=== PATIENT | female | born 1995 | race Two or more races ===

== ENCOUNTER 2016-07-14 12:59 | Emergency (ER) | payer OTHER ==
[2016-07-14 13:03] VITALS: BP 102/49; PULSE 100; TEMP 98.1; BMI 19.9
--- NOTE | 2016-07-14 14:10 | PDOC ---
History of Present Illness - General History Source: Patient Exam Limitations: No Limitations - History of Present Illness Initial Comments: 07/14/16 14:13 The patient is a 21-year-old woman , accompanied by mother, currently 6-7 weeks , with a past medical history of seizure disorders who presents to the emergency department via walk-in for further evaluation of vaginal bleeding. Patient reports noting vaginal spotting, approximately 4 days ago, which was bright red in appearance. No clots. Patient reports associated symptoms of abdominal cramping, nausea and vomiting, for which she attributes to her morning sickness. Patient denies any fever, chills, dysuria, hematuria, vaginal discharge. She has an appointment with both her Neurologist and consumer studies professor on Sunday morning. Allergies: None reported. Past Surgical History: None reported. Social History: No tobacco, ETOH and recreational drug use. Primary Care Physician: Dr. Yanique Bush <Shasta Tomas - Last Filed: 07/14/16 16:29> <Shalini Quintero - Last Filed: 07/15/16 10:05> - General Chief Complaint: Vaginal Bleeding Stated Complaint: VAGINAL PAIN, Time Seen by Provider: 07/14/16 14:10 Past History <Shasta Tomas - Last Filed: 07/14/16 16:29> - Past Medical History Other medical history: SEIZURES - Psycho/Social/Smoking Cessation Hx Suicidal Ideation: No Smoking History: Never smoked Information on smoking cessation initiated: No Hx Alcohol Use: No Drug/Substance Use Hx: No Substance Use Type: None <Shalini Quinetro - Last Filed: 07/15/16 10:05> - Past Medical History Allergies/Adverse Reactions: Allergies Allergy/AdvReac Type Severity Reaction Status Date / Time No Known Allergies Allergy Verified 07/14/16 13:03 Home Medications: Ambulatory Orders Cephalexin Monohydrate [Keflex -] 500 mg PO BID #14 capsule 07/14/16 Review of Systems - Review of Systems Able to Perform ROS?: Yes Comments:: 07/14/16 14:16 GENERAL/CONSTITUTIONAL: No fever or chills. No weakness. HEAD, EYES, EARS, NOSE AND THROAT: No change in vision. No ear pain or discharge. No sore throat. CARDIOVASCULAR: No chest pain or shortness of breath. RESPIRATORY: No cough, wheezing, or hemoptysis. GASTROINTESTINAL: +Abdominal cramping. Nausea. Vomiting. No diarrhea or constipation. GENITOURINARY: +vaginal spotting. No dysuria, frequency, or change in urination. MUSCULOSKELETAL: No joint or muscle swelling or pain. No neck or back pain. SKIN: No rash NEUROLOGIC: No headache, vertigo, loss of consciousness, or change in strength/ sensation. ENDOCRINE: No increased thirst. No abnormal weight change. HEMATOLOGIC/LYMPHATIC: No anemia, easy bleeding, or history of blood clots. ALLERGIC/IMMUNOLOGIC: No hives or skin allergy. <GenovevaShasta - Last Filed: 07/14/16 16:29> *Physical Exam - Vital Signs Last Vital Signs Temp Pulse Resp BP Pulse Ox 98.1 F 100 H 18 102/49 100 07/14/16 13:07/14/16 13:07/14/16 13:07/14/16 13:07/14/16 13:01 - Physical Exam Comments: 07/14/16 14:16 GENERAL: Awake, alert, and fully oriented, in no acute distress HEAD: No signs of trauma EYES: PERRLA, EOMI, sclera anicteric, conjunctiva clear ENT: Auricles normal inspection, hearing grossly normal, nares patent, oropharynx clear without exudates. Moist mucosa NECK: Normal ROM, supple, no lymphadenopathy, JVD, or masses LUNGS: Breath sounds equal, clear to auscultation bilaterally. No wheezes, and no crackles HEART: Regular rate and rhythm, normal S1 and S2, no murmurs, rubs or gallops ABDOMEN: Soft, nontender, normoactive bowel sounds. No guarding, no rebound. No masses EXTREMITIES: Normal range of motion, no edema. No clubbing or cyanosis. No cords, erythema, or tenderness NEUROLOGICAL: Cranial nerves II through XII grossly intact. Normal speech, normal gait <Tomas,Shasta - Last Filed: 07/14/16 16:29> - Vital Signs Last Vital Signs Temp Pulse Resp BP Pulse Ox 98.1 F 100 H 18 102/49 100 07/14/16 13:01 07/14/16 13:07/14/16 13:07/14/16 13:07/14/16 13:01 - Physical Exam Comments: : No external lesions. Trace blood in the vault. Os closed. Nontender. <Shalini Quintero - Last Filed: 07/15/16 10:05> ED Treatment Course - LABORATORY CBC & Chemistry Diagram: 07/14/16 14:11 07/14/16 14:11 <Shasta Tomas - Last Filed: 07/14/16 16:29> - LABORATORY CBC & Chemistry Diagram: 07/14/16 14:11 07/14/16 14:11 <Shalini Quintero - Last Filed: 07/15/16 10:05> Medical Decision Making - Medical Decision Making 07/14/16 16:[address] Trammell. F/u keyanna results. If +IUP, DC home with abx for UTI. <Shalini Quintero - Last Filed: 07/15/16 10:05> *DC/Admit/Observation/Transfer - Attestations Scribe Attestion: 07/14/16 14:16 Documentation prepared by Shasta Tomas, acting as bacteriologist medical for Shalini Quintero MD. <Shasta Tomas - Last Filed: 07/14/16 16:29> - Discharge Dispostion Admit: No <Shalini Quintero - Last Filed: 07/15/16 10:05> Diagnosis at time of Disposition: UTI (urinary tract infection) Qualifiers: Urinary tract infection type: acute cystitis Hematuria presence: without hematuria Qualified Code(s): N30.00 - Acute cystitis without hematuria Qualifiers: Weeks of gestation: less than 8 weeks Qualified Code(s): Z3A.01 - Less than 8 weeks gestation of - Discharge Dispostion Disposition: HOME Condition at time of disposition: Stable - Prescriptions Prescriptions: Cephalexin Monohydrate [Keflex -] 500 mg PO BID #14 capsule - Referrals Referrals: Yanique Bush [Primary Care Provider] - - Patient Instructions Printed Discharge Instructions: DI for Urinary Tract Infection (UTI), DI for Vaginal Bleeding During Additional Instructions: Please follow up with your chief wharfinger doctor. If you have worsening bleed, please return to the ER for further evaluation. Call to schedule an appointment. You also have a urinary tract infection. Take the keflex as prescribed.
[2016-07-14 15:09] LABS: BASOPHIL 0.1 % (0-2.0); EOSINOPHIL 0.4 % (0-4.5); MCH 30.6 pg (25.7-33.7); MEAN PLT VOLUME 8.3 fl (7.5-11.1); NEUTROPHILS 66.4 % (42.8-82.8); PLATELET COUNT 151 K/MM3 (134-434); RDW 13.9 % (11.6-15.6); WHITE BLOOD COUNT 6.2 K/mm3 (4.0-10.0)
[2016-07-14 15:15] LABS: URINE APPEARANCE SLCLOUDY; URINE BILIRUBIN NEGATIVE (NEGATIVE); URINE COLOR YELLOW; URINE GLUCOSE (UA) NEGATIVE (NEGATIVE); URINE KETONE NEGATIVE (NEGATIVE); URINE NITRITE NEGATIVE (NEGATIVE); URINE PROTEIN NEGATIVE (NEGATIVE); URINE UROBILINOGEN NEGATIVE E.U./dl (0.2-1.0)
[2016-07-14 15:17] LABS: ALBUMIN 4.1 g/dl (3.4-5.0); ANION GAP 9 (8-16); BILIRUBIN,TOTAL 0.2 mg/dL (0.2-1.0); CALCIUM 8.7 mg/dL (8.5-10.1); CO2 27 mmol/L (21-32); CREATININE 0.4 mg/dL (0.55-1.02); GLUCOSE,RANDOM 85 mg/dL (74-106); SGOT/AST 7 U/L (15-37); SGPT/ALT 18 U/L (12-78); TOT PROT 6.9 g/dl (6.4-8.2)
[2016-07-14 15:22] LABS: URINE BLOOD 3+ (NEGATIVE); URINE LEUK ESTERASE 2+ (NEGATIVE)
[2016-07-14 15:27] LABS: URINE MUCUS RARE; URINE RBC 33 /hpf (0-3); URINE WBC 14 /hpf (3-5)
[2016-07-14 15:32] LABS: ALK PHOS 44 U/L (45-117)
[2016-07-14] MEDS ORDERED: CEPHALEXIN MONOHYDRATE 500 MG CAPSULE (UD) PO ONE (15:48)
[2016-07-14] MEDS ORDERED: CEPHALEXIN MONOHYDRATE 250 MG CAPSULE (FP) ONE (16:20)
--- NOTE | 2016-07-14 18:18 | PDOC ---
*Physical Exam - Vital Signs Last Vital Signs Temp Pulse Resp BP Pulse Ox 98.1 F 100 H 18 102/49 100 07/14/16 13:01 07/14/16 13:01 07/14/16 13:01 07/14/16 13:01 07/14/16 13:01 ED Treatment Course - LABORATORY CBC & Chemistry Diagram: 07/14/16 14:11 07/14/16 14:11 - ADDITIONAL ORDERS Additional order review: Laboratory Results 07/14/16 07/14/16 07/14/16 14:11 14:11 14:11 Sodium 136 Potassium 4.3 Chloride 100 Carbon Dioxide 27 Anion Gap 9 BUN 8 Creatinine 0.4 L Creat Clearance w eGFR > 60 Random Glucose 85 Calcium 8.7 Total Bilirubin 0.2 AST 7 L ALT 18 Alkaline Phosphatase 44 L Total Protein 6.9 Albumin 4.1 Beta HCG, Quant 57203.2 Urine Color Yellow Urine Appearance Slcloudy Urine pH 6.0 Ur Specific Empire 1.028 Urine Protein Negative Urine Glucose (UA) Negative Urine Ketones Negative Urine Blood 3+ H Urine Nitrite Negative Urine Bilirubin Negative Urine Urobilinogen Negative Ur Leukocyte Esterase 2+ H Urine RBC 33 Urine WBC 14 Ur Epithelial Cells Many Urine Mucus Rare Blood Type A POSITIVE Antibody Screen Negative 07/14/16 14:11 RBC 3.52 L MCV 90.0 MCHC 34.0 RDW 13.9 MPV 8.3 Neutrophils % 66.4 Lymphocytes % 26.2 Monocytes % 6.9 Eosinophils % 0.4 Basophils % 0.1 - Medications Given in the ED: ED Medications Discontinued Medications Generic Name Dose Route Start Last Admin Trade Name Freq PRN Reason Stop Dose Admin Cephalexin HCl 500 mg 07/14/16 15:48 07/14/16 16:21 Keflex - PO 07/14/16 15:49 500 mg ONCE ONE Administration Medical Decision Making - Medical Decision Making 07/14/16 18:15 Sign-out received from outgoing Emergency Physician Pt interviewed and examined Ancillary studies reviewed Case discussed in detail with oncoming Emergency Physician including history, physical exam and ancillary studies. Ultrasound reviewed. Gestational age of 6 weeks and 2 days with a heart rate 120 bpm. Small subchorionic bleed. Blood type is A+. Labs reviewed. Urine analysis with the urine tract infection. Given by the prior attending. CBC, BMP 07/14/16 14:11 07/14/16 14:11 CMP Sodium 136 mmol/L (136-145) 07/14/16 14:11 Potassium 4.3 mmol/L (3.5-5.1) 07/14/16 14:11 Chloride 100 mmol/L (98-107) 07/14/16 14:11 Carbon Dioxide 27 mmol/L (21-32) 07/14/16 14:11 Anion Gap 9 (8-16) 07/14/16 14:11 BUN 8 mg/dL (7-18) 07/14/16 14:11 Creatinine 0.4 mg/dL (0.55-1.02) L 07/14/16 14:11 Creat Clearance w eGFR > 60 (>60) 07/14/16 14:11 Random Glucose 85 mg/dL (74-106) 07/14/16 14:11 Calcium 8.7 mg/dL (8.5-10.1) 07/14/16 14:11 Total Bilirubin 0.2 mg/dL (0.2-1.0) 07/14/16 14:11 AST 7 U/L (15-37) L 07/14/16 14:11 ALT 18 U/L (12-78) 07/14/16 14:11 Alkaline Phosphatase 44 U/L (45-117) L 07/14/16 14:11 Total Protein 6.9 g/dl (6.4-8.2) 07/14/16 14:11 Albumin 4.1 g/dl (3.4-5.0) 07/14/16 14:11 Beta HCG, Quant 55693.2 mIU/ml 07/14/16 14:11 Return precautions given including worsening bleed. I discussed the physical exam findings, ancillary test results and final diagnoses with the patient. I answered all of the patient's questions. The patient was satisfied with the care received and felt comfortable with the discharge plan and treatment plan. The patient will call their primary care physician within 24 hours to arrange follow-up and will return to the Emergency Department with any new, persistant or worsening symptoms. *DC/Admit/Observation/Transfer Diagnosis at time of Disposition: UTI (urinary tract infection) Qualifiers: Urinary tract infection type: acute cystitis Hematuria presence: without hematuria Qualified Code(s): N30.00 - Acute cystitis without hematuria Qualifiers: Weeks of gestation: less than 8 weeks Qualified Code(s): Z3A.01 - Less than 8 weeks gestation of - Discharge Dispostion Disposition: HOME Condition at time of disposition: Stable Admit: No - Prescriptions Prescriptions: Cephalexin Monohydrate [Keflex -] 500 mg PO BID #14 capsule - Referrals Referrals: Yanique Bush [Primary Care Provider] - - Patient Instructions Printed Discharge Instructions: DI for Vaginal Bleeding During , DI for Urinary Tract Infection (UTI) Additional Instructions: Please follow up with your botanical technical officer doctor. If you have worsening bleed, please return to the ER for further evaluation. Call to schedule an appointment. You also have a urinary tract infection. Take the keflex as prescribed. - Post Discharge Activity
== END 2016-07-14 18:54 | disposition home or self-care (01) ==
LOC: JER 12:59
DX: O26.891 Other specified pregnancy related conditions, first trimester (principal); N30.00 Acute cystitis without hematuria; Z3A.01 Less than 8 weeks gestation of pregnancy
CPT/HCPCS: 36415; 76801-TC; 80053; 81003; 81015; 84702; 85025; 86850; 86900; 86901; 99283-25

== ENCOUNTER 2019-04-26 16:36 | Emergency (ER) | payer OTHER ==
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
[2019-04-26] MEDS ORDERED: SODIUM CHLORIDE 0.9% 1000 ML INFUS.BAG IV ONE (17:09)
[2019-04-26 17:10] VITALS: BP 101/62; PULSE 90; TEMP 98.6; BMI 22.1
[2019-04-26 17:37] LABS: INR 1.14 (0.82-1.09); PROTHROMBIN TIME (PATIENT) 12.7 SEC (10.2-13.0)
[2019-04-26 17:38] LABS: BASO % 0.3 % (0-2.0); EOS % 0.4 % (0-4.5); HEMOGLOBIN 12.1 GM/dl (10.7-15.3); MCHC 33.6 g/dl (32.0-36.0); MEAN CELL VOLUME 89.1 fl (80-96); MEAN PLT VOLUME 8.5 fl (7.5-11.1); MONO % 3.4 % (3.8-10.2); NEUT % 70.9 % (42.8-82.8); PLATELET COUNT 235 K/MM3 (134-434); RBC 4.04 M/mm3 (3.60-5.2); RDW 12.8 % (11.6-15.6); WHITE BLOOD COUNT 7.8 K/mm3 (4.0-10.8)
[2019-04-26 17:56] LABS: ALBUMIN 4.7 g/dl (3.4-5.0); BILIRUBIN,TOTAL 0.2 mg/dl (0.2-1); CALCIUM 9.1 mg/dl (8.5-10); CREATININE 0.6 mg/dl (0.55-1.3); POTASSIUM 3.7 mmol/L (3.5-5.1); TOT PROT 7.7 g/dl (6.4-8.2)
[2019-04-26 18:43] LABS: EPITHELIAL CELLS MANY /hpf
[2019-04-26] MEDS ORDERED: CEFTRIAXONE 1 GM in DEXTROSE 5%-WATER - 100 ML IVPB ONE (18:50)
[2019-04-26] MEDS ORDERED: cefTRIAXone SODIUM 1 GM VIAL ONE (18:59)
[2019-04-26 19:09] LABS: COCAINE, UR NEGATIVE ng/ml (CUTOFF=300); OPIATES, URI NEGATIVE ng/ml (CUTOFF=300); PHENCYCLIDINE,URINE NEGATIVE ng/ml (CUTOFF=25); URINE AMPHETAMINES NEGATIVE ng/ml (CUTOFF=500); URINE BENZODIAZEPINES NEGATIVE ng/ml (CUTOFF=200)
[2019-04-26 19:10] LABS: METHADONE, UR NEGATIVE ng/ml (CUTOFF=300); URINE BARBITURATES NEGATIVE ng/ml (CUTOFF=200)
--- NOTE | 2019-04-26 19:49 | PDOC ---
*Physical Exam - Vital Signs Last Vital Signs Temp Pulse Resp BP Pulse Ox 98.6 F 90 20 101/62 99 04/26/19 16:37 04/26/19 16:37 04/26/19 16:37 04/26/19 16:37 04/26/19 16:37 ED Treatment Course - LABORATORY CBC & Chemistry Diagram: 04/26/19 17:30 04/26/19 17:30 - ADDITIONAL ORDERS Additional order review: Laboratory Results 04/26/19 04/26/19 04/26/19 18:17 18:17 18:17 PT with INR INR PTT (Actin FS) Sodium Potassium Chloride Carbon Dioxide Anion Gap BUN Creatinine Est GFR (CKD-EPI)AfAm Est GFR (CKD-EPI)NonAf POC Glucometer Random Glucose Lactic Acid Calcium Total Bilirubin AST ALT Alkaline Phosphatase Total Protein Albumin TSH Urine Color Yellow Urine Appearance Clear Urine pH 6.0 Urine Protein Negative Urine Glucose (UA) Negative Urine Ketones Negative Urine Blood 2+ H Urine Nitrite Negative Urine Bilirubin Negative Urine Urobilinogen 0.2 Ur Leukocyte Esterase 2+ Urine RBC 10-20 Urine WBC 10-20 Ur Transition Epith Cell Many Urine Bacteria Few Urine HCG, Qual Negative Opiates Screen Negative Methadone Screen Negative Barbiturate Screen Negative Phencyclidine Screen Negative Ur Amphetamines Screen Negative MDMA (Ecstasy) Screen Negative Benzodiazepines Screen Negative Cocaine Screen Negative U Marijuana (THC) Screen Negative Alcohol, Quantitative 04/26/19 04/26/19 04/26/19 17:50 17:48 17:30 PT with INR INR PTT (Actin FS) Sodium Potassium Chloride Carbon Dioxide Anion Gap BUN Creatinine Est GFR (CKD-EPI)AfAm Est GFR (CKD-EPI)NonAf POC Glucometer 88 Random Glucose Lactic Acid 1.7 Calcium Total Bilirubin AST ALT Alkaline Phosphatase Total Protein Albumin TSH Urine Color Urine Appearance Urine pH Urine Protein Urine Glucose (UA) Urine Ketones Urine Blood Urine Nitrite Urine Bilirubin Urine Urobilinogen Ur Leukocyte Esterase Urine RBC Urine WBC Ur Transition Epith Cell Urine Bacteria Urine HCG, Qual Opiates Screen Methadone Screen Barbiturate Screen Phencyclidine Screen Ur Amphetamines Screen MDMA (Ecstasy) Screen Benzodiazepines Screen Cocaine Screen U Marijuana (THC) Screen Alcohol, Quantitative < 3.0 04/26/19 04/26/19 04/26/19 17:30 17:30 17:30 PT with INR 12.7 INR 1.14 PTT (Actin FS) 27.2 Sodium 137 Potassium 3.7 Chloride 103 Carbon Dioxide 24 Anion Gap 10 BUN 13.0 Creatinine 0.6 Est GFR (CKD-EPI)AfAm 148.90 Est GFR (CKD-EPI)NonAf 128.48 POC Glucometer Random Glucose 91 Lactic Acid Calcium 9.1 Total Bilirubin 0.2 AST 19 ALT 15 Alkaline Phosphatase 43 L Total Protein 7.7 Albumin 4.7 TSH 1.74 Urine Color Urine Appearance Urine pH Urine Protein Urine Glucose (UA) Urine Ketones Urine Blood Urine Nitrite Urine Bilirubin Urine Urobilinogen Ur Leukocyte Esterase Urine RBC Urine WBC Ur Transition Epith Cell Urine Bacteria Urine HCG, Qual Opiates Screen Methadone Screen Barbiturate Screen Phencyclidine Screen Ur Amphetamines Screen MDMA (Ecstasy) Screen Benzodiazepines Screen Cocaine Screen U Marijuana (THC) Screen Alcohol, Quantitative 04/26/19 04/26/19 17:48 17:30 RBC 4.04 MCV 89.1 MCHC 33.6 RDW 12.8 MPV 8.5 Neutrophils % 70.9 Lymphocytes % 25.0 Monocytes % 3.4 L Eosinophils % 0.4 Basophils % 0.3 POC Glucometer 88 - Medications Given in the ED: ED Medications Discontinued Medications Generic Name Dose Route Start Last Admin Trade Name Freq PRN Reason Stop Dose Admin Ceftriaxone Sodium 1 gm/ 100 mls @ 200 mls/hr 04/26/19 18:50 04/26/19 19:04 Dextrose IVPB 04/26/19 19:19 200 mls/hr ONCE ONE Administration Sodium Chloride 1,000 ml 04/26/19 17:09 04/26/19 17:36 Normal Saline - IV 04/26/19 17:10 1,000 ml ONCE ONE Administration ED Progress Note - Progress Note Progress Note: Care of this patient received from Dr. Vasquez. Noncontrast head CT shows no evidence of acute intracranial pathology. Case discussed with Dr. Carmichael on-call for neurology. patient will be restarted on Keppra (500 mg IV loading dose followed by 100 mg orally twice a day). Since the patient is back to baseline neurologically without further seizures or development of new symptoms, Dr. Carmichael feels that the patient can be discharged with follow-up as an outpatient. He can see the patient in 48 hours (Sunday, April 28). Meanwhile, the patient to return to the emergency room if she has any further seizure activity or develops any new symptoms. plan discussed with the patient and her family: They understand and agree to the plan. Discharge - Discharge Information Problems reviewed: Yes Clinical Impression/Diagnosis: Seizure UTI (urinary tract infection) Qualifiers: Urinary tract infection type: acute cystitis Hematuria presence: without hematuria Qualified Code(s): N30.00 - Acute cystitis without hematuria Condition: Stable Disposition: HOME - Additional Discharge Information Prescriptions: Ciprofloxacin [Cipro (Restricted To Id)] 250 mg PO BID #10 tablet levETIRAcetam [Keppra -] 500 mg PO BID #14 tablet - Follow up/Referral Referrals: Chani Carmichael MD [Staff Physician] - - Patient Discharge Instructions Patient Printed Discharge Instructions: DI for Seizure Disorder -- Adult Additional Instructions: Keppra 500 mg twice a day starting tomorrow Cipro 250 mg twice a day for 5 days starting tomorrow You can take ibuprofen or acetaminophen as needed for headache Return to ER if you have any seizure activity or develop severe headache/ vomiting Follow-up with neurologist () on April 28 (1:30 PM) Call neurology office at 9 AM on Sunday to confirm appointment - Post Discharge Activity
[2019-04-26] MEDS ORDERED: levETIRAcetam 500 MG/5 ML INJECTION VIAL IVPB ONE ×2 (19:57→19:59)
--- NOTE | 2019-04-27 10:54 | EKG ---
Test Reason : Blood Pressure : / mmHG Vent. Rate : 096 BPM Atrial Rate : 096 BPM P-R Int : 118 ms QRS Dur : 092 ms QT Int : 342 ms P-R-T Axes : 038 069 028 degrees QTc Int : 432 ms NORMAL SINUS RHYTHM NORMAL ECG WHEN COMPARED WITH ECG OF 02-SEP-2010 18:20, PREVIOUS ECG IS PRESENT Confirmed by FRANC KC MD ([id number]) on 04/27/2019 10:53:44 AM Referred By: GIL HERNANDES Confirmed By:FRANC KC MD
== END 2019-04-26 21:27 | disposition home or self-care (01) ==
LOC: FER 16:36
PROC: 3E03329 Introduction of Other Anti-infective into Peripheral Vein, Percutaneous Approach (ICD-10-PCS; principal; 2019-04-26)
PROC: 3E033GC Introduction of Other Therapeutic Substance into Peripheral Vein, Percutaneous Approach (ICD-10-PCS; 2019-04-26)
PROC: 3E0337Z Introduction of Electrolytic and Water Balance Substance into Peripheral Vein, Percutaneous Approach (ICD-10-PCS; 2019-04-26)
DX: N39.0 Urinary tract infection, site not specified (principal); R56.9 Unspecified convulsions
CPT/HCPCS: 36415; 70450-TC; 71045-TC-FY; 80053; 80307; 81003; 81015; 82962; 83605; 84443; 84703; 85025; 85610; 85730; 93005; 99282-25; J7030

== ENCOUNTER 2019-05-14 16:45 | Emergency (ER) | payer OTHER ==
--- NOTE | 2019-05-14 16:59 | PDOC ---
History of Present Illness - General Chief Complaint: Seizure Stated Complaint: Seizure Time Seen by Provider: 05/14/19 16:57 - History of Present Illness Initial Comments: 05/14/19 18:43 24 y/o F with hx of seizures, presents to the ER after having a seizure at work. Seizure was preceded by aura and she felt like she had to sit down. Events were witnessed by a friend who is with her. Shortly after sitting down, she began to seize. Seizure lasted about 2 minutes and involved a lot of twitching and foaming at the mouth. EMS was called to the scene. Patient has since returned to baseline and there where no reported events en route with EMS. she was last seen at [facility] 04/26 for seizure and had a head CT done which showed no acute intracranial pathology This is her first seizure since then. She was started on keppra in the ED and Dr. Carmichael has consulted. However patient has not been compliant with plan to follow up with neurologist and has not been taking Keppra. she denies any headache, fever, sarah, numbness, tingling, nausea,vomiting, n neck stiffness at this time. Past History - Past Medical History Allergies/Adverse Reactions: Allergies Allergy/AdvReac Type Severity Reaction Status Date / Time No Known Allergies Allergy Verified 05/14/19 17:06 Home Medications: Ambulatory Orders Cephalexin [Keflex] 500 mg PO BID 5 Days #10 capsule 05/14/19 Levetiracetam [Keppra] 500 mg PO BID #56 tablet 05/14/19 COPD: No Seizures: Yes - Psycho Social/Smoking Cessation Hx Smoking History: Never smoked Have you smoked in the past 12 months: No Hx Alcohol Use: No Drug/Substance Use Hx: No Substance Use Type: None Review of Systems - Review of Systems Constitutional: No: Chills, Fever HEENTM: No: Eye Pain, Blurred Vision Respiratory: No: Cough, Shortness of Breath Cardiac (ROS): No: Chest Pain ABD/GI: No: Nausea, Vomiting : No: Burning, Dysuria Musculoskeletal: No: Back Pain, Neck Pain Integumentary: No: Bruising, Change in Color Neurological: Yes: Headache. No: Numbness Hematologic/Lymphatic: No: Anemia, Blood Clots *Physical Exam - Physical Exam Comments: 05/14/19 18:44 PE: GENERAL: Awake, alert, and fully oriented, in no acute distress HEAD: No signs of trauma, normocephalic, atraumatic EYES: PERRLA, EOMI, sclera anicteric, conjunctiva clear ENT: Auricles normal inspection, hearing grossly normal, nares patent, oropharynx clear without exudates. Moist mucosa NECK: Normal ROM, supple, no lymphadenopathy, JVD, or masses LUNGS: No distress, speaks full sentences, clear to auscultation bilaterally HEART: Regular rate and rhythm, normal S1 and S2, no murmurs, rubs or gallops, peripheral pulses normal and equal bilaterally. ABDOMEN: Soft, nontender, normoactive bowel sounds. No guarding, no rebound. No masses EXTREMITIES : Normal inspection, Normal range of motion, no edema. No clubbing or cyanosis NEUROLOGICAL: Cranial nerves II through XII grossly intact. Normal speech, normal gait, no focal sensorimotor deficits SKIN: Warm, Dry, normal turgor, no rashes or lesions noted ED Treatment Course - LABORATORY CBC & Chemistry Diagram: 05/14/19 18:10 05/14/19 18:10 Medical Decision Making - Medical Decision Making 05/14/19 18:44 24 y/o F with hx of seizures, presents to the ER after having a seizure at work. cbc, cmp, ua, urine culture, cxr, ekg ekg: normal sinus rhythm with sinus arrhythmia. normal EKG 05/14/19 18:49 05/14/19 19:04 Meds: 1000mg keppra IV loading dose. 05/14/19 20:01 elevated white count- 11.4 UA leukocyte esterase 2+ bacteria 264.6 d/c home with keppra and keflex referral to neurology Discharge - Discharge Information Problems reviewed: Yes Clinical Impression/Diagnosis: Seizure UTI (urinary tract infection) Qualifiers: Urinary tract infection type: site unspecified Condition: Stable Disposition: HOME - Admission No - Additional Discharge Information Prescriptions: Cephalexin [Keflex] 500 mg PO BID 5 Days #10 capsule Levetiracetam [Keppra] 500 mg PO BID #56 tablet - Follow up/Referral Referrals: Pam Crowell MD [Primary Care Provider] - Chani Carmichael MD [Staff Physician] - - Patient Discharge Instructions Patient Printed Discharge Instructions: DI for Seizure Disorder -- Adult Additional Instructions: you were seen in the ER for seizures you have been prescribed medication for a urinary tract infection as well., take as prescribed RETURN TO THE ER -if you have another seizure -you develop fever, chills, nausea, vomiting -any symptoms from today worsen - Post Discharge Activity
[2019-05-14 17:06] VITALS: BP 106/68; PULSE 99; TEMP 97.7; BMI 23.0
[2019-05-14 18:18] LABS: EPI CELLS 11.6 /HPF (0-5/HPF); HYALINE CASTS 5 /lpf (0-8); PH,URINE 5.5 (5.0-8.0); URINE APPEARANCE CLOUDY; URINE BACTERIA 264.6 /hpf (NEGATIVE); URINE BILIRUBIN NEGATIVE (NEGATIVE); URINE COLOR YELLOW; URINE GLUCOSE (UA) NEGATIVE (NEGATIVE); URINE KETONE TRACE (NEGATIVE); URINE LEUK ESTERASE 2+ (NEGATIVE); URINE NITRITE NEGATIVE (NEGATIVE); URINE PROTEIN NEGATIVE (NEGATIVE); URINE RBC 1 /hpf (0-4); URINE UROBILINOGEN 0.2 mg/dL (0.2-1.0); URINE WBC 14 /hpf (0-5)
[2019-05-14 18:35] LABS: BASO % 0.2 % (0-2.0); EOS % 0.2 % (0-4.5); HEMATOCRIT 36.7 % (32.4-45.2); HEMOGLOBIN 12.1 GM/dL (10.7-15.3); LYMPH % 14.7 % (8-40); MCH 28.8 pg (25.7-33.7); MEAN CELL VOLUME 87.4 fl (80-96); MEAN PLT VOLUME 8.5 fl (7.5-11.1); MONO % 3.1 % (3.8-10.2); NEUT % 81.8 % (42.8-82.8); PLATELET COUNT 227 K/MM3 (134-434); RBC 4.19 M/mm3 (3.60-5.2); RDW 13.8 % (11.6-15.6); WHITE BLOOD COUNT 11.4 K/mm3 (4.0-10.0)
[2019-05-14] MEDS ORDERED: levETIRAcetam 500 MG/5 ML INJECTION VIAL IVPB ONE ×2 (18:58→19:26)
[2019-05-14 18:59] LABS: ALBUMIN 4.5 g/dl (3.4-5.0); BILIRUBIN,TOTAL 0.2 mg/dL (0.2-1); BLOOD UREA NITROGEN 10.6 mg/dL (7-18); CALCIUM 9.4 mg/dL (8.5-10.1); CREATININE 0.5 mg/dL (0.55-1.3); POTASSIUM 3.7 mmol/L (3.5-5.1); TOT PROT 7.8 g/dl (6.4-8.2)
--- NOTE | 2019-05-15 00:58 | PDOC ---
Documentation entered by Yunior Lawrence SCRIBE, acting as scribe for Dmitriy Blake MD. Dmitriy Blake MD: This documentation has been prepared by the Howard sotomayor Daniel, SCRIBE, under my direction and personally reviewed by me in its entirety. I confirm that the documentation accurately reflects all work, treatment, procedures, and medical decision making performed by me. Attending Attestation - Resident Resident Name: AurelioFelipeDarrelCollin - ED Attending Attestation I have performed the following: I have examined & evaluated the patient, The case was reviewed & discussed with the resident, I agree w/resident's findings & plan, Exceptions are as noted - HPI HPI: 05/14/19 18:16 The patient is a 24 year old female with a past medical history of seizures ( supposed to be on Keppra) here today for evaluation of seizure. The patient reports that she had a witnessed seizure 1 hour prior to arrival. She states that she was with a friend when it occurred and she began to experience an aura , at which point her friend lied her down onto her side. Pt then began to have generalized body shaking. No urine incontinence or tongue biting. Pt's friend reports she seized for approximately 2 minutes, followed by 30 mins of confusion. Patient reports that she has had multiple seizures in the past when she was a child, up until she became in 2010 and her seizures went away. She did not have another seizure until a few weeks ago where she was evaluated but that they went away when she became . She states that her last seizure was on 04/26/19 and presented to [facility] where she was given neuro follow up and prescription for Keppra but never saw the neurologist and did not take the Keppra as she was hoping it would be a one time seizure. She denies recent fevers, chills, blurry vision, dizziness, headache. Denies chest pain, shortness of breath. Denies nausea, vomiting, diarrhea, abdominal pain. Denies recent drug use, sleep reprivation. Allergies: NKA PCP: Pam Crowell - Physicial Exam PE: 05/14/19 18:16 GENERAL: Awake, alert, and fully oriented, in no acute distress HEAD: No signs of trauma EYES: PERRLA, EOMI, sclera anicteric, conjunctiva clear ENT: Nares patent, oropharynx clear without exudates. Moist mucosa. No tongue lac. NECK: Normal ROM, supple, no lymphadenopathy, JVD, or masses LUNGS: Breath sounds equal, clear to auscultation bilaterally. No wheezes, and no crackles HEART: Regular rate and rhythm, normal S1 and S2, no murmurs, rubs or gallops ABDOMEN: Soft, nontender, normoactive bowel sounds. No guarding, no rebound. No masses EXTREMITIES: Normal range of motion, no edema. No cords, erythema, or tenderness. WWP BACK: No midline spinal tenderness in cervical/thoracic/lumbar region NEUROLOGICAL: Normal speech, cranial nerves intact, 5/5 strength in all 4 extremities, normal sensation to light touch in all 4 extremities, normal cerebellar exam, normal gait, normal reflexes and tone SKIN: Warm, Dry, normal turgor, no rashes or lesions noted. - Medical Decision Making 05/15/19 00:53 24-year-old female with a history of a seizure disorder presents to the emergency department with second seizure in 1 month. Patient has not been compliant with Keppra and did not follow-up with neurology after recent visit. No evidence of trauma on exam today, and patient denies pain as her friend lied her down on the ground before she began to have tonic-clonic movements. Labs were checked to rule out any reversible causes of seizures, and were unremarkable. Urinalysis was consistent with a UTI, and thus patient was prescribed Keflex. Patient was loaded with Keppra. Discussed at length with patient the importance of compliance with Keppra and follow-up with neurology for better seizure control. Patient will follow up with Dr. Vicente within 1 week. Patient expresses understanding of plan. She is clinically stable for discharge home. I discussed the physical exam findings, ancillary test results and final diagnoses with the patient. I answered all of the patient's questions. The patient was satisfied with the care received and felt comfortable with the discharge plan and treatment plan. The patient will call their primary care physician within 24 hours to arrange follow-up and will return to the Emergency Department with any new, persistent or worsening symptoms. Heart Score/ECG Review #1 05/15/19 00:57 Twelve-lead EKG was performed and reviewed by me. Normal sinus rhythm, rate 73. Normal axis. No ST elevations or T wave inversions. Sinus arrhythmia, likely secondary to respiratory variation.
--- NOTE | 2019-05-15 11:35 | EKG ---
Test Reason : Blood Pressure : / mmHG Vent. Rate : 073 BPM Atrial Rate : 073 BPM P-R Int : 118 ms QRS Dur : 092 ms QT Int : 374 ms P-R-T Axes : 036 083 048 degrees QTc Int : 412 ms NORMAL SINUS RHYTHM WITH SINUS ARRHYTHMIA NON-SPECIFIC INTRA-VENTRICULAR CONDUCTION DELAY WHEN COMPARED WITH ECG OF 26-APR-2019 17:20, NO SIGNIFICANT CHANGE WAS FOUND Confirmed by LEAH NORIEGA MD ([id number]) on 05/15/2019 11:35:38 AM Referred By: Confirmed By:LEAH NORIEGA MD
== END 2019-05-14 20:17 | disposition home or self-care (01) ==
LOC: JER 16:45
PROC: 3E033GC Introduction of Other Therapeutic Substance into Peripheral Vein, Percutaneous Approach (ICD-10-PCS; principal; 2019-05-14)
DX: R56.9 Unspecified convulsions (principal)
CPT/HCPCS: 36415; 71046-TC-FY; 80053; 81003; 82962; 84703; 85025; 87086; 93005; 93010; 99283-25

== ENCOUNTER 2023-12-24 20:49 | Emergency (ER) | payer OTHER ==
[2023-12-24 21:02] VITALS: BP 132/93; PULSE 102; RESP 16; TEMP 98.2; BMI 24.7
[2023-12-24 21:41] LABS: HEMATOCRIT 33.1 % (32.4-45.2); HEMOGLOBIN 11.2 G/dL (10.7-15.3); MCH 30.3 pg (25.7-33.7); MCHC 33.7 g/dl (32.0-36.0); MEAN PLT VOLUME 8.2 fl (7.5-11.1); PLATELET COUNT 190.6 10^3/uL (134-434); RBC 3.68 10^6/uL (3.60-5.2); RDW 13.5 % (11.6-15.6); WHITE BLOOD COUNT 8.4 10^3/uL (4.0-10.8)
[2023-12-24 22:04] LABS: PLATELET ESTIMATE ADEQUATE
== END 2023-12-24 23:49 | disposition home or self-care (01) ==
LOC: FER 20:49
DX: O03.9 Complete or unspecified spontaneous abortion without complication (principal)
CPT/HCPCS: 36415; 76801-TC; 76817-TC; 81003; 81015; 81025; 84702; 84703; 85027; 99284-25

== ENCOUNTER 2024-04-19 16:14 | Emergency (ER) | payer OTHER ==
[2024-04-19 16:44] VITALS: RESP 18; TEMP 98.2; BMI 25.6
[2024-04-19] MEDS ORDERED: ACETAMINOPHEN INJECTION 100 ML ONE (16:46)
[2024-04-19] MEDS ORDERED: MAG HYDROX/AL HYDROX/SIMETH 30 ML UNIT-DOSE CUP ONE (16:46)
[2024-04-19] MEDS ORDERED: FAMOTIDINE 20 MG/50 ML IVPB 20 MG/50 ML MG IVPB ONE (16:46)
[2024-04-19] MEDS: FAMOTIDINE 20 MG/50 ML IVPB 20 MG/50 ML MG IVPB ONE (16:50)
[2024-04-19] MEDS: MAG HYDROX/AL HYDROX/SIMETH 30 ML UNIT-DOSE CUP PO ONE (16:51)
[2024-04-19 17:02] LABS: HEMATOCRIT 34.6 % (32.4-45.2); HEMOGLOBIN 11.7 G/dL (10.7-15.3); MCH 30.4 pg (25.7-33.7); MCHC 33.9 g/dl (32.0-36.0); MEAN CELL VOLUME 89.8 fl (80-96); MEAN PLT VOLUME 8.6 fl (7.5-11.1); PLATELET COUNT 194.2 10^3/uL (134-434); RBC 3.85 10^6/uL (3.60-5.2); RDW 13.2 % (11.6-15.6); WHITE BLOOD COUNT 7.5 10^3/uL (4.0-10.8)
[2024-04-19] MEDS: ACETAMINOPHEN 1000 MG/100 ML BAG IVPB ONE (17:07)
[2024-04-19 17:16] LABS: ALBUMIN 4.5 g/dl (3.4-5.0); BILIRUBIN,TOTAL 0.3 mg/dl (0.2-1); CALCIUM 9.2 mg/dl (8.5-10.1); CREATININE 0.5 mg/dl (0.6-1.3); POTASSIUM 3.7 mmol/L (3.5-5.1); TOT PROT 6.9 g/dl (6.4-8.2)
[2024-04-19 17:18] LABS: HCG,QUALITATIVE URINE Positive
[2024-04-19 18:06] LABS: EPITHELIAL CELLS 0-5 /hpf
[2024-04-19 18:14] LABS: PLATELET ESTIMATE ADEQUATE
[2024-04-19] MEDS ORDERED: CEPHALEXIN MONOHYDRATE 500 MG CAPSULE (UD) ONE (18:30)
[2024-04-19] MEDS: CEPHALEXIN MONOHYDRATE 500 MG CAPSULE (UD) PO ONE (18:32)
[2024-04-19 18:53] VITALS: BP 107/75; PULSE 78
== END 2024-04-19 19:00 | disposition home or self-care (01) ==
LOC: FER 16:14
PROC: 3E033GC Introduction of Other Therapeutic Substance into Peripheral Vein, Percutaneous Approach (ICD-10-PCS; principal; 2024-04-19)
PROC: 3E033NZ Introduction of Analgesics, Hypnotics, Sedatives into Peripheral Vein, Percutaneous Approach (ICD-10-PCS; 2024-04-19)
DX: O23.41 Unspecified infection of urinary tract in pregnancy, first trimester (principal); O26.891 Other specified pregnancy related conditions, first trimester; R10.13 Epigastric pain; O99.891 Other specified diseases and conditions complicating pregnancy; R19.7 Diarrhea, unspecified; O21.9 Vomiting of pregnancy, unspecified; R42 Dizziness and giddiness; Z3A.01 Less than 8 weeks gestation of pregnancy
CPT/HCPCS: 36415; 76705-TC; 76815; 80053; 81003; 81015; 83690; 84703; 85027; 87086; 99284-25; J0131

== ENCOUNTER 2024-04-22 17:25 | Emergency (ER) | payer OTHER ==
[2024-04-22 17:34] VITALS: BP 114/69; PULSE 84; RESP 18; TEMP 97.5; BMI 25.6
[2024-04-22] MEDS ORDERED: ACETAMINOPHEN 500 MG TABLET (FP) ONE (17:43)
[2024-04-22] MEDS ORDERED: SILVER SULFADIAZINE 1% TOP CREAM 50 GM JAR TP ONE (17:43)
[2024-04-22] MEDS: ACETAMINOPHEN 500 MG TABLET (FP) PO ONE (18:00)
[2024-04-22] MEDS: BACITRACIN ZINC 15 GM TUBE TOPICAL OINTMENT TP ONE (18:00)
[2024-04-22] MEDS: SILVER SULFADIAZINE 1% TOP CREAM 50 GM JAR TP ONE (18:01)
== END 2024-04-22 18:55 | disposition home or self-care (01) ==
LOC: FER 17:25
DX: O9A.211 Injury, poisoning and certain other consequences of external causes complicating pregnancy, first trimester (principal); T21.21XA Burn of second degree of chest wall, initial encounter; T22.112A Burn of first degree of left forearm, initial encounter; X10.2XXA Contact with fats and cooking oils, initial encounter; Y93.G3 Activity, cooking and baking; Z3A.01 Less than 8 weeks gestation of pregnancy
CPT/HCPCS: 99283-25